=== PATIENT | female | born 1950 | race African-American/Black ===

== ENCOUNTER 2017-10-13 08:15 | Day surgery (SDC) | payer OTHER ==
[2017-10-13] MEDS ORDERED: DEXTROSE 50% 50 ML SYRINGE (09:17)
[2017-10-13] MEDS ORDERED: FENTAnyl 50 MCG/ML VIAL (10:34)
[2017-10-13] MEDS ORDERED: MIDAZOLAM 1 MG/ML 2 ML INJ ×2 (10:34→10:35)
== END 2017-10-13 14:52 | disposition home or self-care (01) ==
LOC: GIL 08:15
DX: Z12.11 Encounter for screening for malignant neoplasm of colon (principal); K57.90 Diverticulosis of intestine, part unspecified, without perforation or abscess without bleeding; K64.8 Other hemorrhoids; I10 Essential (primary) hypertension; E11.9 Type 2 diabetes mellitus without complications
CPT/HCPCS: 45378; 82962